=== PATIENT | male | born 1995 | race Caucasian/White ===

== ENCOUNTER 2018-01-04 16:31 | Emergency (ER) | payer BC ==
[2018-01-04 17:23] VITALS: BP 102/65
--- NOTE | 2018-01-04 17:34 | UC ---
Skin Complaint HPI - HPI Summary HPI Summary: Pt c/o itchy, blister like rash to bilateral lower extremities. 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 Has been treating rash with OTC hydrocortisone cream and calamine, minimal improvement. - History of Current Complaint Chief Complaint: UCSkin Time Seen by Provider: 01/04/18 17:18 Stated Complaint: SKIN COMPLAINT Hx Obtained From: Patient Onset/Duration: Sudden Onset, Lasting Weeks, Still Present Skin Exposure Onset/Duration: Weeks Ago Timing: Constant Onset Severity: Mild Current Severity: Mild Pain Intensity: 0 Location: Diffuse Character: Pruritus, Raised Aggravating Factor(s): Touch Alleviating Factor(s): OTC Creams/Salves Associated Signs & Symptoms: Positive: Rash Related History: Possible Reaction to: Environmental Exposure - Allergy/Home Medications Allergies/Adverse Reactions: Allergies Allergy/AdvReac Type Severity Reaction Status Date / Time amoxicillin Allergy Rash Verified 01/04/18 17:21 bee stings Allergy local Uncoded 12/06/15 10:01 redness Review of Systems Constitutional: Negative Skin: Rash Eyes: Negative ENT: Negative Respiratory: Negative Cardiovascular: Negative Gastrointestinal: Negative Genitourinary: Negative Motor: Negative Neurovascular: Negative Musculoskeletal: Negative Neurological: Negative Psychological: Negative Is Patient Immunocompromised?: No All Other Systems Reviewed And Are Negative: Yes PMH/Surg Hx/FS Hx/Imm Hx Previously Healthy: Yes - Surgical History Surgical History: None - Family History Known Family History: Positive: Cardiac Disease - Social History Occupation: Student Lives: With Family Alcohol Use: Weekly Substance Use Type: None Smoking Status (MU): Never Smoked Tobacco Have You Smoked in the Last Year: No - Immunization History Most Recent Tetanus Shot: per mom, up to date Vaccination Up to Date: Yes Physical Exam Triage Information Reviewed: Yes Appearance: Well-Appearing Vital Signs: Initial Vital Signs Temp 98.5 F 01/04/18 17:18 Pulse 76 01/04/18 17:18 Resp 16 01/04/18 17:18 BP 102/65 01/04/18 17:18 Pulse Ox 100 01/04/18 17:18 Vital Signs Reviewed: Yes Eye Exam: Normal ENT: Positive: Hearing grossly normal Neck exam: Normal Respiratory: Positive: No respiratory distress Musculoskeletal Exam: Normal Neurological Exam: Normal Psychological Exam: Normal Skin: Positive: rashes - bilateral lower extremities, erythema, clear filled, blisters Course/Dx - Differential Diagnoses - Skin Complaint Differential Diagnoses: Impetigo, Poison [place] - Diagnoses Provider Diagnoses: poison chioma Discharge - Sign-Out/Discharge Documenting (check all that apply): Patient Departure - Discharge Plan Condition: Stable Disposition: HOME Prescriptions: predniSONE TAB* [Deltasone 20 MG TAB*] 20 mg PO DAILY #5 tab Patient Education Materials: Poison [place] (ED) Referrals: Geetha Davies MD [Primary Care Provider] - If Needed - Billing Disposition and Condition Condition: STABLE Disposition: Home
== END 2018-01-04 17:41 | disposition home or self-care (01) ==
LOC: UCCORT 16:31
DX: L23.7 Allergic contact dermatitis due to plants, except food (principal); Z88.0 Allergy status to penicillin; Z91.030 Bee allergy status; Z82.49 Family history of ischemic heart disease and other diseases of the circulatory system
CPT/HCPCS: 99212; G0463

== ENCOUNTER 2018-01-16 15:26 | Emergency (ER) | payer BC ==
[2018-01-16 16:20] VITALS: BP 114/63
--- NOTE | 2018-01-16 16:39 | UC ---
Skin Complaint HPI - HPI Summary HPI Summary: poison elisa on legs arm and neck was getting better than was likely re exposed - re-flare of pain itching and vesicular rash - History of Current Complaint Chief Complaint: UCRash Time Seen by Provider: 01/16/18 16:30 Stated Complaint: SKIN COMPLAINT (POISON ELISA) Hx Obtained From: Patient Onset/Duration: Gradual Onset, Worse Since - 2 days Skin Exposure Onset/Duration: Minutes Ago Timing: Constant Onset Severity: Moderate Current Severity: Moderate Location: Diffuse - arms, legs, neck, forehead Character: Redness, Raised Aggravating Factor(s): Nothing Alleviating Factor(s): Other - past episode rx with prednisone with good effect Associated Signs & Symptoms: Positive: Rash Related History: Possible Reaction to: Environmental Exposure - Allergy/Home Medications Allergies/Adverse Reactions: Allergies Allergy/AdvReac Type Severity Reaction Status Date / Time amoxicillin Allergy Rash Verified 01/16/18 16:20 bee stings Allergy local Uncoded 01/16/18 16:20 redness Review of Systems Constitutional: Negative Skin: Rash Eyes: Negative ENT: Negative Respiratory: Negative Cardiovascular: Negative Gastrointestinal: Negative Genitourinary: Negative Motor: Negative Neurovascular: Negative Musculoskeletal: Negative Neurological: Negative Psychological: Negative Is Patient Immunocompromised?: No All Other Systems Reviewed And Are Negative: Yes PMH/Surg Hx/FS Hx/Imm Hx Previously Healthy: Yes - Surgical History Surgical History: None - Family History Known Family History: Positive: Unknown, Cardiac Disease - Social History Occupation: Employed Full-time Lives: With Family Alcohol Use: Weekly Substance Use Type: None Smoking Status (MU): Never Smoked Tobacco Have You Smoked in the Last Year: No - Immunization History Most Recent Tetanus Shot: per mom, up to date Vaccination Up to Date: Yes Physical Exam Triage Information Reviewed: Yes Appearance: Well-Appearing, No Pain Distress, Well-Nourished Vital Signs: Initial Vital Signs Temp 98.2 F 01/16/18 16:17 Pulse 66 01/16/18 16:17 Resp 15 01/16/18 16:17 BP 114/63 01/16/18 16:17 Pulse Ox 100 01/16/18 16:17 Vital Signs Reviewed: Yes Eye Exam: Normal Eyes: Positive: Conjunctiva Clear ENT Exam: Normal ENT: Positive: Normal ENT inspection, Hearing grossly normal. Negative: Trismus , Muffled voice, Hoarse voice Dental Exam: Normal Neck exam: Normal Neck: Positive: Supple, Nontender Respiratory Exam: Normal Respiratory: Positive: Chest non-tender, No respiratory distress, No accessory muscle use Cardiovascular Exam: Normal Cardiovascular: Positive: RRR, Pulses Normal, Brisk Capillary Refill Musculoskeletal Exam: Normal Musculoskeletal: Positive: Strength Intact, ROM Intact, No Edema Neurological Exam: Normal Neurological: Positive: Alert, Muscle Tone Normal Psychological Exam: Normal Skin Exam: Other Skin: Positive: rashes Course/Dx - Course Course Of Treatment: prednisone, cool compress and wash, calamine or baking soda paste topically for comfort prn - Diagnoses Provider Diagnoses: contact derm. poison Elisa both legs forearms, neck and forehead Discharge - Sign-Out/Discharge Documenting (check all that apply): Patient Departure - Discharge Plan Condition: Stable Disposition: HOME Prescriptions: predniSONE TAB* [Deltasone 20 MG TAB*] 20 mg PO DAILY #11 tab Patient Education Materials: Diphenhydramine (By mouth), Contact Dermatitis (DC ), Poison Elisa (ED) Referrals: Geetha Davies MD [Primary Care Provider] - If Needed - Billing Disposition and Condition Condition: STABLE Disposition: Home
== END 2018-01-16 16:49 | disposition home or self-care (01) ==
LOC: UCCORT 15:26
DX: L23.7 Allergic contact dermatitis due to plants, except food (principal); T63.79 Toxic effect of contact with other venomous plant; Y92.9 Unspecified place or not applicable; Z88.0 Allergy status to penicillin
CPT/HCPCS: 99212; G0463

== ENCOUNTER 2018-03-07 15:32 | Emergency (ER) | payer BC ==
[2018-03-07 16:14] VITALS: BP 121/64
--- NOTE | 2018-03-07 16:46 | UC ---
Skin Complaint HPI - HPI Summary HPI Summary: Pt presents with c/o recurrent exposure to poison elisa. Pt has "itchy rash" on lower extremities that began yesterday. Pt has know exposure to poison elisa - History of Current Complaint Chief Complaint: UCSkin Time Seen by Provider: 03/07/18 16:33 Stated Complaint: POISON ELISA Hx Obtained From: Patient Onset/Duration: Sudden Onset, Lasting Days, Still Present Skin Exposure Onset/Duration: Days Ago Timing: Constant Onset Severity: Mild Current Severity: Mild Pain Intensity: 0 Location: Discrete, Other - lower extremities Character: Pruritus, Redness, Raised Aggravating Factor(s): Touch Alleviating Factor(s): Other - steroid PO and steroid cream Associated Signs & Symptoms: Positive: Rash Related History: Possible Reaction to: Environmental Exposure - Allergy/Home Medications Allergies/Adverse Reactions: Allergies Allergy/AdvReac Type Severity Reaction Status Date / Time amoxicillin Allergy Rash Verified 01/16/18 16:20 bee stings Allergy local Uncoded 01/16/18 16:20 redness Review of Systems Constitutional: Negative Skin: Rash Eyes: Negative ENT: Negative Respiratory: Negative Cardiovascular: Negative Gastrointestinal: Negative Genitourinary: Negative Motor: Negative Neurovascular: Negative Musculoskeletal: Negative Neurological: Negative Psychological: Negative Is Patient Immunocompromised?: No All Other Systems Reviewed And Are Negative: Yes PMH/Surg Hx/FS Hx/Imm Hx Previously Healthy: Yes - Surgical History Surgical History: None - Family History Known Family History: Positive: Unknown, Cardiac Disease - Social History Occupation: Employed Full-time Lives: With Family Alcohol Use: Weekly Substance Use Type: None Smoking Status (MU): Never Smoked Tobacco Have You Smoked in the Last Year: No - Immunization History Most Recent Tetanus Shot: per mom, up to date Vaccination Up to Date: Yes Physical Exam Triage Information Reviewed: Yes Appearance: Well-Appearing Vital Signs: Initial Vital Signs Temp 98.1 F 03/07/18 16:10 Pulse 68 03/07/18 16:10 Resp 16 03/07/18 16:10 BP 121/64 03/07/18 16:10 Pulse Ox 99 03/07/18 16:10 Vital Signs Reviewed: Yes Eye Exam: Normal ENT: Positive: Hearing grossly normal Dental Exam: Normal Neck exam: Normal Respiratory: Positive: No respiratory distress Musculoskeletal Exam: Normal Neurological Exam: Normal Psychological Exam: Normal Skin: Positive: rashes - fluid fille dvessicle bilateral lower extremities. Course/Dx - Differential Diagnoses - Skin Complaint Differential Diagnoses: Contact Dermatitis, Poison Elisa - Diagnoses Provider Diagnoses: poison elisa Discharge - Sign-Out/Discharge Documenting (check all that apply): Patient Departure All imaging exams completed and their final reports reviewed: No Studies - Discharge Plan Condition: Stable Disposition: HOME Prescriptions: predniSONE TAB* [Deltasone 20 MG TAB*] 20 mg PO DAILY #4 tab Patient Education Materials: Poison Elisa (ED) Referrals: Geetha Davies MD [Primary Care Provider] - If Needed - Billing Disposition and Condition Condition: STABLE Disposition: Home
== END 2018-03-07 16:50 | disposition home or self-care (01) ==
LOC: UCCORT 15:32
DX: L23.7 Allergic contact dermatitis due to plants, except food (principal); Z88.3 Allergy status to other anti-infective agents
CPT/HCPCS: 99212; G0463

== ENCOUNTER 2018-12-09 08:56 | Emergency (ER) | payer BC ==
[2018-12-09 09:16] VITALS: BP 97/75
--- NOTE | 2018-12-09 09:22 | UC ---
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 Rash has moved to bilateral arms, legs and a couple spots on his face. Itchy, denies pain. 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 the medrol dose pack was not sufficient -getting more lesions even after exposure late last week. - History of Current Complaint Chief Complaint: UCRash Time Seen by Provider: 12/09/18 09:07 Stated Complaint: SKIN COMPLAINT Pain Intensity: 0 - Allergy/Home Medications Allergies/Adverse Reactions: Allergies Allergy/AdvReac Type Severity Reaction Status Date / Time amoxicillin Allergy Rash Verified 12/09/18 09:12 Penicillins Allergy Rash Verified 12/09/18 09:12 bee stings Allergy local Uncoded 12/09/18 09:12 redness PMH/Surg Hx/FS Hx/Imm Hx Previously Healthy: Yes - Surgical History Surgical History: None - Family History Known Family History: Positive: Unknown, Cardiac Disease - Social History Alcohol Use: Occasionally Substance Use Type: None Smoking Status (MU): Never Smoked Tobacco Have You Smoked in the Last Year: No - Immunization History Most Recent Tetanus Shot: per mom, up to date Vaccination Up to Date: Yes Review of Systems All Other Systems Reviewed And Are Negative: Yes Constitutional: Positive: Negative Skin: Positive: Rash Eyes: Positive: Negative ENT: Positive: Negative Respiratory: Positive: Negative Cardiovascular: Positive: Negative Gastrointestinal: Positive: Negative Genitourinary: Positive: Negative Motor: Positive: Negative Neurovascular: Positive: Negative Musculoskeletal: Positive: Negative Neurological: Positive: Negative Psychological: Positive: Negative Is Patient Immunocompromised?: No Physical Exam Triage Information Reviewed: Yes Appearance: Well-Appearing, No Pain Distress, Well-Nourished - very pleasant Vital Signs: Initial Vital Signs Temp 99.4 F 12/09/18 09:12 Pulse 63 12/09/18 09:12 Resp 15 12/09/18 09:12 BP 97/75 12/09/18 09:12 Pulse Ox 100 12/09/18 09:12 Vital Signs Reviewed: Yes Eye Exam: Normal Respiratory Exam: Normal Cardiovascular Exam: Normal Skin: Positive: Rashes - small vessicular tracking areas on b/l arms, legs, left cheek Course/Dx - Differential Diagnoses - Skin Complaint Differential Diagnoses: Contact Dermatitis, Poison [place], Poison [place] - Diagnoses Provider Diagnosis: Contact dermatitis Discharge - Sign-Out/Discharge Documenting (check all that apply): Patient Departure All imaging exams completed and their final reports reviewed: No Studies - Discharge Plan Condition: Stable Disposition: HOME Prescriptions: Hydrocortisone Valerate 1 gm TOPICAL BID PRN #30 oint...g. PRN Reason: Itching predniSONE TAB* [Deltasone 10 MG TAB*] 10 mg PO DAILY 16 Days #32 tab Patient Education Materials: Contact Dermatitis (DC) Referrals: Geetha Davies MD [Primary Care Provider] - Additional Instructions: We talked about the concerns with prednisone use. Some of them include but not limited to anxiety, agitation, insomnia, GI upset, elevated blood pressures and blood sugar readings, adrenal crisis and avascular necrosis of the hip. -You should follow up if your symptoms increase or persist. - Billing Disposition and Condition Condition: STABLE Disposition: Home
== END 2018-12-09 09:33 | disposition home or self-care (01) ==
LOC: UCCORT 08:56
DX: L25.9 Unspecified contact dermatitis, unspecified cause (principal)
CPT/HCPCS: 99212; G0463